=== PATIENT | female | born 2005 | race Caucasian/White ===

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

== ENCOUNTER 2025-03-07 08:55 | Inpatient (IN) ==
--- NOTE | 2025-03-07 09:04 | History & Physical Report ---
Date of Service March 07, 2025 Assessment & Plan (1) Uterine contractions: Plan: Patient is in L&D to rule out labor. Patient states she has contractions every 2-3 minutes. Patient is currently stable. Will plan to admit. Will order Pitocin. Will AROM. Expect . Heart Assessment is Cat. 1. Will continue to monitor. History of Present Illness Chief Complaint: Rule out Labor Primary Care Provider: Romana Hernandez, YVETTE 19 yo at 40w5d presented into the hospital to rule out labor. Patient admits to feeling contractions every 2-3 minutes. Patient feels movement along with bloody show. Patient admits to regular care. Patient denies fluid loss. Denies fever/chills/sweats, Headache, CP, SOB, LE pain, breast pain, dysuria. GBS neg, RH+ and Delivery Plans Late presentation to care. Hepatitis B Non Immune *Recommend Hepatitis B Vaccine Labs Lab Results OB Labs: Blood Type A Positive 09/23/24 Antibody Screen NEGATIVE 09/23/24 Hgb 10.4 g/dl (12.0-16.0) L 03/02/25 Hct 31.2 % (37.0-47.0) L 03/02/25 MCV 74.1 fL (80.0-100.0) L 03/02/25 Plt Count 247 K/uL (130-400) 03/02/25 Rubella IgG Antibody Immune (Immune) 09/23/24 Treponema pallidum Ab Negative (Negative) 12/06/24 Hep Bs Antigen Negative (Negative) 09/23/24 Hepatitis C Antibody Negative (Negative) 09/23/24 HIV 1&2 Ab/P24 Ag 4thGn Negative (Negative) 09/23/24 Glucose 1 Hr 50 gm 87 mg/dl (70-130) 12/06/24 OB Optional Labs: Chlamydia trachomatis RNA Not Detected (NotDetected) 12/22/24 Neisseria gonorrhoeae RNA Not Detected (NotDetected) 12/22/24 Thyroid Stimulating Hormone (TSH) 0.843 uIu/ml (0.510-4.910) 10/09/17 Allergies Allergy/AdvReac Type Severity Reaction Status Date / Time tree nut Allergy Severe Swelling Verified 03/04/25 11:25 of Lip/Tongue/Throat Home Medications Medication Instructions Recorded Confirmed Type PNV 153-FA 400 mcg-om3 35 mg-dha 1 tab PO DAILY 12/07/24 03/04/25 History 25 mg-epa 5 mg-fish oil chew tablet ( Gummies) ondansetron HCl 4 mg tablet 4 mg PO Q8H PRN nausea and 01/31/25 03/04/25 Rx vomiting #10 tabs famotidine 40 mg tablet 40 mg PO DAILY #30 tabs 02/10/25 03/04/25 Rx digital therapeutic,SANTY device #1 ea 02/17/25 03/04/25 Rx Patient History Medical History Varicella vaccination Anxiety COVID Mood disorder ADHD (attention deficit hyperactivity disorder) Surgical History No history of previous surgery Family History Grandmother (Maternal) Breast cancer Mother Hip dysplasia, congenital Father Hypertension Stroke Denies family history of Ovarian cancer Colorectal cancer Social History Smoking Status: Never smoker Do You Dip or Chew Tobacco: No; Hx Alcohol Use: No Hx Substance Use: No Preferred Language: [place] Communication Ability: Effective Salt Plant Operator Required: No Beliefs That Will Affect Care: None marital status: Single marital status details: Katharine Macias (19) [phone] Current Living Situation: Family Current Living Situation Comment: lives with parents, sister, dog, cat-sister changing litter current occupational status: employed current occupation: [employer] Feels Safe at Home: Yes Childhood Exposure to Second-Hand Smoke: Yes Diet: regular caffeine: Yes Dental Care, Regularly: Yes Physical Activity Frequency: 3-4 Times per Week Seatbelt Use: always Sunscreen Use: Yes Gender Identity: Male Assistive Devices: Glasses 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 leg. ); no calf tenderness Gastrointestinal (Abdomen): Percussion/Palpation: abdomen soft; abdomen nontender Skin: no rashes, warm and dry Psychiatric: Eye Contact: good eye contact Speech: normal rate/rhythm/volume of speech Thought Process: linear/logical thought process Genitourinary: cervix exam per Dr. Ngo and Dr. Solis Monitoring External Monitor Baseline: 120 Variability: Moderate Accels: Present Early Decels: No Variable Decels: No Late Decels: No Tocodynamometer Interval: 2-3 minutes
[2025-03-07] MEDS ORDERED: LIDOCAINE 1% LOCAL 20 ML VIAL INFIL PRN (09:20)
[2025-03-07] MEDS: LACTATED RINGER'S 1,000 ML IV PRN (09:30)
[2025-03-07] MEDS ORDERED: BUPIVACAINE 0.25% PF 30 ML VIAL EPI PRN (09:48)
[2025-03-07] MEDS ORDERED: NALOXONE HCL 0.4 MG/1 ML VIAL/CARP IV PRN (09:48)
[2025-03-07] MEDS ORDERED: NALOXONE HCL 1 MG in SODIUM CHLORIDE 0.9% 1,000 ML IV PRN (09:48)
[2025-03-07] MEDS ORDERED: ROPIVACAINE 0.5% PF 5 MG/ML 20 ML VIAL EPI PRN (09:48)
[2025-03-07] MEDS ORDERED: NALBUPHINE HCL INJ 10 MG/ML AMP IV PRN (09:48)
[2025-03-07] MEDS ORDERED: LIDOCAINE 2% MPF LOCAL 5 ML VIAL EPI PRN (09:48)
[2025-03-07] MEDS ORDERED: diphenhydrAMINE 50 MG/ML VIAL IV PRN (09:48)
[2025-03-07] MEDS ORDERED: SODIUM CHLORIDE 0.9% PF INJ 10 ML VIAL EPI PRN (09:48)
[2025-03-07] MEDS ORDERED: fentANYL 2 MCG/ML BUPIVacaine 0.125%-NSS 100ML BAG EPI PRN (09:48)
--- NOTE | 2025-03-07 09:48 | Anesthesiology Consultation ---
Date of Service March 07, 2025 Assessment & Plan ASA ASA2 Proposed Anesthesia Anesthesia Type: Labor Epidural Risk / Benefits Reviewed With: PT / POA / Parent / Guardian, Accepts Plan and Informed Consent Obtained History Height/Weight Height: 5 ft 4 in Weight: 79.379 kg Allergies Allergy/AdvReac Type Severity Reaction Status Date / Time tree nut Allergy Severe Swelling Verified 03/07/25 09:41 of Lip/Tongue/Throat Medications Home Medications Medication Instructions Recorded Confirmed Last Taken PNV 153-FA 400 mcg-om3 35 mg-dha 1 tab PO DAILY 12/07/24 03/07/25 03/02/25 10:30 25 mg-epa 5 mg-fish oil chew tablet ( Gummies) ondansetron HCl 4 mg tablet 4 mg PO Q8H PRN nausea and 01/31/25 03/07/25 03/02/25 10:00 vomiting #10 tabs famotidine 40 mg tablet 40 mg PO DAILY #30 tabs 02/10/25 03/07/25 03/01/25 22:00 digital therapeutic,SANTY device #1 ea 02/17/25 03/04/25 Unknown Active Medications Generic Name Dose Route Start Last Admin Trade Name Freq PRN Reason Stop Dose Admin Lactated Ringer's 1,000 mls @ 125 mls/hr 03/07/25 09:20 03/07/25 09:30 Lr IV 03/09/25 09:19 999 mls/hr .Q8H PRN Administration L&D Protocol Protocol Past Medical History Medical History Varicella vaccination Anxiety COVID Mood disorder ADHD (attention deficit hyperactivity disorder) Exercise / Class Metabolic Activity II 4-5 Yardwork/Stairs/Walk up hill Past Family History Family History Grandmother (Maternal) Breast cancer Mother Hip dysplasia, congenital Father Hypertension Stroke Denies family history of Ovarian cancer Colorectal cancer Past Surgical History Surgical History No history of previous surgery Past Anesthesia History No Hx of Anesthesia Complications and No Family Hx of Anesthesia Complications History of PONV No Hx of PONV and No Hx of Motion Sickness Social History Smoking Status: Never smoker Do You Dip or Chew Tobacco: No Hx Alcohol Use: No Hx Substance Use: No substance use type: does not use Review of Systems denies fever/cough/ colds/ chest pain/ SOB/ BACILIO denies BACILIO Physical Exam Vital Signs Last Vital Signs Temp 36.8 C 03/07/25 09:31 Pulse 102 H 03/07/25 10:18 Resp 24 03/07/25 09:31 BP 120/70 03/07/25 10:18 Pulse Ox 100 03/07/25 10:15 ENMT Mouth: no TMJ abnormality and no dentition abnormality Thyromental Distance: > or= 3.5 Finger Breadths Mallampati Class: II Neck neck extension not limited Respiratory normal respiratory effort; no respiratory distress Auscultation: lungs clear to auscultation bilaterally Cardiovascular Rate/Rhythm: regular rate and regular rhythm Neurologic moves all extremities Psychiatric Orientation: alert and oriented x 3 Testing Laboratory Results 03/07/25 09:34
[2025-03-07 10:06] LABS: Hematocrit (blood only) 29.4 % (37.0-47.0); Hemoglobin 9.6 g/dl (12.0-16.0); Mean Corpuscular Hemoglobin 24.2 pg (25.0-34.0); Mean Corpuscular Volume 74.1 fL (80.0-100.0); Platelet Count 215 K/uL (130-400); RDW Standard Deviation 39.5 fL (36.4-46.3); Red Blood Count 3.97 M/uL (4.20-5.40); White Blood Count 13.29 K/ul (4.8-10.8)
[2025-03-07] MEDS: fentANYL 2 MCG/ML BUPIVacaine 0.125%-NSS 100ML BAG ONE (10:14)
[2025-03-07] MEDS: LIDOCAINE 2%/EPINEPHRINE 1:200,000 20 ML PF ONE (10:25)
[2025-03-07] MEDS: BUPIVACAINE 0.25% PF 30 ML VIAL ONE (10:25)
[2025-03-07] MEDS: SODIUM CHLORIDE 0.9% PF INJ 10 ML VIAL ONE (10:25)
[2025-03-07] MEDS: SODIUM CHLORIDE 0.9% PF INJ 10 ML VIAL EPI STA (10:26)
[2025-03-07] MEDS: LIDOCAINE 2%/EPINEPHRINE 1:200,000 20 ML PF EPI STA (10:26)
[2025-03-07] MEDS: BUPIVACAINE 0.25% PF 30 ML VIAL EPI STA (10:26)
[2025-03-07] MEDS: ONDANSETRON INJ 2 MG/ML 2 ML VIAL IV PRN (13:50)
[2025-03-07] MEDS: OXYTOCIN 30 UNITS/NSS 30 UNITS/500 ML BAG IV PRN (17:02)
[2025-03-07] MEDS ORDERED: HYDROCORTISONE ACETATE 25 MG SUPP PR PRN (17:07)
[2025-03-07] MEDS ORDERED: OXYTOCIN 30 UNITS/NSS 30 UNITS/500 ML BAG IV PRN (17:07)
--- NOTE | 2025-03-07 17:16 | Delivery Summary ---
Vaginal Delivery Summary Date of Service March 07, 2025 Vaginal Delivery Summary and 1st Degree LAC Presenting the spontaneous labor progressed the augmentation to complete complete +2 station. Patient pushed over intact perineum with epidural anesthesia and delivered a viable with weight and Apgars pending. The delivered out difficulty and quickly followed by shoulders and body. No nuchal cord was noted. was noted to be vigorous upon delivery and a 1 minute delayed cord clamping was initiated. Cord was then double clamped and cut remained on maternal abdomen. Cord blood obtained attention turned delivery placenta was delivered intact three-vessel cord gentle cord traction. Inspection of perineum vagina and cervix there is noted to be a left labial laceration which extended down to the left vaginal sidewall. Laceration was repaired with 3-0 Vicryl in a continuous running stitch. 800 mcg placed per rectum. No complications noted and blood loss per QBL. Sponge, needle and instrument counts correct at the completion of the case. [facility] Vaginal Delivery Charge Delivery Type Details: and 1st Degree LAC
[2025-03-07] MEDS: IBUPROFEN 600 MG TAB PO PRN (17:51)
--- NOTE | 2025-03-07 17:55 | Anesthesia Procedure Note ---
Date of Service March 07, 2025 Anesthesia Post Epidural Note Vital Signs Vital Signs: Temp Pulse Resp BP Pulse Ox 37.1 C 109 H 20 130/73 93 03/07/25 14:30 03/07/25 17:36 03/07/25 16:06 03/07/25 17:36 03/07/25 16:52 Pain Intensity Abdomen: Pain Intensity: 0 Notes Mental Status: alert / awake / arousable and participated in evaluation Nausea / Vomiting: adequately controlled Pain: adequately controlled Airway Patency, RR, SpO2: stable & adequate BP & HR: stable & adequate Hydration State: stable & adequate Neuraxial Anesthesia: was administered and sensory block resolved Anesthetic Complications: no major complications apparent and Pt Satisfied with anesthetic care Epidural: Removed without complications and With tip intact
[2025-03-07] MEDS: DOCUSATE SODIUM 100 MG CAP PO SCH (20:56)
[2025-03-07] MEDS: BENZOCAINE 20% SPRY 85 APPLN/85 GM CAN EXT PRN (21:37)
[2025-03-07] MEDS: CALCIUM CARBONATE 500 MG CHEWABLE TAB PO PRN (21:37)
--- NOTE | 2025-03-08 06:14 | Obstetrical Progress Note ---
Date of Service March 08, 2025 Assessment & Plan (1) care and examination: Plan: Patient is post status post day 1. Patient is currently stable but desires to wait one more day. Will discharge tomorrow. Admission and Anticipated Discharge Date Admission Date: March 07, 2025 Supervising Physician Co-Signing Physician Notes Patient seen with resident and agree with the above findings and plan. Continue routine care Subjective 19 yo post- day 1 s/p [] Ambulation: ambulating normally Voiding: no voiding problems Passing Gas:: Yes Diet Tolerance:: regular diet Feeding Type:: breast feeding Current Pain Level:2-3 crampy pain. Patient is still sore. Resting comfortably this AM in NAD. Patient admits to a little cough, but she had this before giving . Denies fevers/chills, AMBROSIO, CP/palp, SOB, N/V, LE pain, breast pain/dschrg, UTI Sx. Review of Systems Review of Systems: as per subjective HPI Physical Exam Constitutional: WD/WN, vitals as above Respiratory: normal respiratory effort, lungs clear to auscultation Cardiovascular: Rate/Rhythm: regular rate and regular rhythm Heart Sounds: normal S1 and normal S2; no murmur Extremities: + edema (trace to 1+ ); no calf tenderness Gastrointestinal (Abdomen): Percussion/Palpation: abdomen soft; abdomen nontender Skin: no rashes, warm and dry Psychiatric: Eye Contact: good eye contact Speech: normal rate/rhythm/volume of speech Thought Process: linear/logical thought process Genitourinary: uterus is firm and at umbilicus Results & Data Vital Signs (Past 12 Hours) Vital Signs Temp Pulse Pulse Resp BP BP Pulse Ox 03/08/25 03:00 36.5 C 81 18 98/62 L 99 03/07/25 23:00 36.7 C 98 H 18 118/76 100 03/07/25 19:50 36.9 C 80 18 114/79 100 03/07/25 19:06 110 H 03/07/25 19:06 132/64 03/07/25 18:51 121 H 03/07/25 18:51 127/63 03/07/25 18:36 94 H 03/07/25 18:36 134/62 03/07/25 18:21 104 H 03/07/25 18:21 127/67 O2 Del Method 03/08/25 03:00 Room Air 03/07/25 23:00 Room Air 03/07/25 19:50 Room Air 03/07/25 19:06 03/07/25 19:06 03/07/25 18:51 03/07/25 18:51 03/07/25 18:36 03/07/25 18:36 03/07/25 18:21 03/07/25 18:21
[2025-03-08 06:23] LABS: Hematocrit (blood only) 28.5 % (37.0-47.0); Hemoglobin 9.6 g/dl (12.0-16.0)
[2025-03-08] MEDS: PRENATAL VITAMIN 1 TAB PO SCH (07:38)
[2025-03-08] MEDS: FERROUS SULFATE 325 MG TAB PO SCH (07:38)
[2025-03-08] MEDS: ACETAMINOPHEN 325 MG TAB PO PRN (07:38)
[2025-03-08] MEDS: DIPHTHER/TETAN/PERTUS Vaccine (Tdap, Adol/Adult) 0.5mL IM ONE (10:56)
[2025-03-08 23:18] VITALS: O2SAT 99
--- NOTE | 2025-03-09 06:10 | Obstetrical Progress Note ---
Date of Service March 09, 2025 Assessment & Plan (1) care and examination: Plan: Patient is post status post day 2. Patient is currently stable and desires to go home. Will discharge today. . Admission and Anticipated Discharge Date Admission Date: March 07, 2025 Supervising Physician Co-Signing Physician Notes Resident Physician Supervision Note: I interviewed and examined the patient. Discussed with Dr. Puckett and agree with findings and plan as documented in the note. Any exceptions or clarifications are listed here: PP2 s/p , doing well. Stable for dc home Documented By: Danna Gupta MD Subjective 19 yo post- day 2 s/p [] Ambulation: ambulating normally Voiding: no voiding problems Passing Gas:: Yes Diet Tolerance:: regular diet Feeding Type:: breast feeding Current Pain Level:Improved crampy pain. 1/10 pain Resting comfortably this AM in NAD. Denies fevers/chills, AMBROSIO, CP/palp, SOB, N/V, LE pain, breast pain/dschrg, UTI Sx. Review of Systems Review of Systems: as per subjective HPI Physical Exam Constitutional: WD/WN, vitals as above Respiratory: normal respiratory effort, lungs clear to auscultation Cardiovascular: Rate/Rhythm: regular rate and regular rhythm Heart Sounds: normal S1 and normal S2; no murmur Extremities: + edema (trace ); no calf tenderness Gastrointestinal (Abdomen): Percussion/Palpation: abdomen soft; abdomen nontender Skin: no rashes, warm and dry Psychiatric: Eye Contact: good eye contact Speech: normal rate/rhythm/volume of speech Thought Process: linear/logical thought process Genitourinary: uterus is firm and 2cm above umbilicus Results & Data Vital Signs (Past 12 Hours) Vital Signs Temp Pulse Resp BP Pulse Ox O2 Del Method 03/08/25 23:15 36.7 C 70 16 111/75 99 Room Air 03/08/25 20:00 36.4 C L 84 16 97/61 L 100 Room Air Laboratory Results Lab Results 03/07/25 03/08/25 Range/Units 09:34 05:51 WBC 13.29 H (4.8-10.8) K/ul RBC 3.97 L (4.20-5.40) M/uL Hgb 9.6 L 9.6 L (12.0-16.0) g/dl Hct 29.4 L 28.5 L (37.0-47.0) % MCV 74.1 L (80.0-100.0) fL MCH 24.2 L (25.0-34.0) pg MCHC 32.7 (32.0-36.0) g/dL RDW Std Deviation 39.5 (36.4-46.3) fL RDW Coeff of Luci 14.9 H (11.5-14.5) % Plt Count 215 (130-400) K/uL MPV 11.8 (9.4-12.4) fL Treponema pallidum Ab Negative (Negative)
[2025-03-09 08:40] VITALS: BP 108/71; RESP 18; TEMP 97.7
[2025-03-09 10:50] VITALS: PULSE 81
== END 2025-03-09 13:05 | disposition home or self-care (01) | DRG 807 ==
LOC: OPB 08:55 → 4S1 08:57 → 4E2 19:40